=== PATIENT | male | born 1985 ===

== ENCOUNTER 2021-02-28 09:33 | Outpatient (CLI) | payer OTHER ==
[2021-02-28] MEDS ORDERED: OMNIPAQUE 350 MG/ML, 100ML BOTTLE ONE (10:00)
== END 2021-02-28 23:59 | disposition home or self-care (01) ==
LOC: RAD 09:33
PROVIDERS: ATTEND Family Medicine Adult Medicine
DX: K22.70 Barrett's esophagus without dysplasia (principal); B17.10 Acute hepatitis C without hepatic coma
CPT/HCPCS: 71260; 74170; Q9967